=== PATIENT | male | born 1960 | race Caucasian/White ===

== ENCOUNTER → 2018-08-08 15:35 | Outpatient (POV) | payer SELFPAY | PROVIDERS: Visit Provider Dermatology | DX: Z00.00 Encounter for general adult medical examination without abnormal findings (principal) ==

== ENCOUNTER → 2018-09-26 15:44 | Outpatient (POV) | payer SELFPAY | PROVIDERS: Visit Provider Dermatology | DX: Z00.00 Encounter for general adult medical examination without abnormal findings (principal) ==

== ENCOUNTER → 2019-06-26 11:13 | Outpatient (CLI) | payer OTHER, SELFPAY ==
--- NOTE | 2019-06-26 11:17 | XR_ITS ---
PROCEDURE: XR CALCANEUS RT MIN 2V CLINICAL INDICATION: RT HEEL PAIN COMPARISON: No exams were available for comparison FINDINGS: No fracture or dislocation. No lytic or blastic change. There is normal mineralization. The joint spaces are well-preserved. No significant degenerative/arthritic changes. No erosive changes evident. Other findings:There is a enthesophyte at the Achilles insertion with some fragmentation superiorly IMPRESSION: Small Achilles enthesophyte otherwise negative Dictated by: Trell Zeng MD 06/26/2019 17:41 Electronically signed by Trell Zeng MD in [place] 06/26/2019 17:41
== END ==
PROVIDERS: PCP Family Medicine; Visit Provider Family Medicine
DX: M79.671 Pain in right foot (principal)
CPT/HCPCS: 73650

== ENCOUNTER 2023-12-27 14:01 | Outpatient (CLI) | payer MEDICARE, SELFPAY ==
--- NOTE | 2023-12-27 | CA_ITS ---
FINAL REPORT TECHNIQUE: Ultrasound images of the deep venous system were obtained from the left groin to the calf veins. CLINICAL HISTORY: Left lateral knee pain FINDINGS: The deep venous system is normally compressible. Normal flow is identified. IMPRESSION: No evidence of left lower extremity DVT. Reviewed, Interpreted and Dictated by Jose Luis Marrero MD Transcribed by Geneva Sherman Authenticated and [facility]
== END 2023-12-27 23:59 | disposition home or self-care (01) ==
LOC: RT 14:08
PROVIDERS: PCP Family Medicine; Visit Provider Family Medicine
DX: M79.605 Pain in left leg (principal)
CPT/HCPCS: 93971

== ENCOUNTER 2024-07-09 09:03 | Outpatient (CLI) | payer MEDICARE, SELFPAY ==
--- NOTE | 2024-07-09 09:06 | MR_ITS ---
FINAL REPORT TECHNIQUE: Multiplanar and multisequence imaging of the lumbar spine was obtained without contrast. CLINICAL HISTORY: SCIATIC LEG PAIN. left sided low back pain with left leg pain. no injury or trauma. COMPARISON: None FINDINGS: There is grade 1 anterior spondylolisthesis of L5 on S1. Alignment is otherwise normal.. Vertebral body height is preserved. The spinal cord ends at the level of L1. There is normal signal intensity within the substance of the distal spinal cord. No acute bone marrow edema or pathologic marrow replacement. Bilateral renal cysts are noted. No acute paraspinal abnormality is identified. L1-2: There is no focal disc herniation, central canal stenosis or neuroforaminal narrowing. L2-3: Central disc protrusion superimposed on annular disc bulge with degenerative endplate changes and facet osteoarthropathy. Moderate to severe central canal stenosis with moderate right and severe left foraminal stenosis. L3-4: Annular disc bulge with degenerative endplate changes and facet osteoarthropathy. Mild central canal stenosis and bilateral foraminal stenosis. L4-5: Annular disc bulge with degenerative endplate changes and facet osteoarthropathy. No central canal stenosis. Moderate right and mild left foraminal stenosis L5-S1: Annular disc bulge with degenerative endplate changes and facet osteoarthropathy. Mild central canal stenosis. Severe bilateral foraminal stenosis. IMPRESSION: Grade 1 anterior spondylolisthesis of L5 on S1. Central protrusion at L2-3 superimposed on annular bulge with severe central canal stenosis. Degenerative disease at other levels as above. Reviewed, Interpreted and Dictated by Lacie Puga MD Transcribed by Delmi Pascal Authenticated and [facility]
== END 2024-07-09 23:59 | disposition home or self-care (01) ==
LOC: RAD 09:04
PROVIDERS: PCP Family Medicine; Visit Provider Family Medicine
DX: M54.42 Lumbago with sciatica, left side (principal)
CPT/HCPCS: 72148

== ENCOUNTER 2024-09-03 08:00 | Outpatient (RCR) | payer MEDICARE, SELFPAY ==
--- NOTE | 2024-08-23 08:59 | HMH.PTOPEV ---
PT Outpatient Evaluation Rehab PT Outpatient Evaluation Start: 08/23/24 07:51 Freq: Status: Active Protocol: Document 08/23/24 07:51 DIMITRIOS (Rec: 08/23/24 08:59 DIMITRIOS [id number]) E-signed By Jesse Virk, PT Outpatient Therapy Subjective History Subjective History Pt is a 64 yom who is referred to [facility] outpatient PT with complaints of LBP that refers down his LLE but not past his knee. Pt reports that this pain began insidiously approximately 5 months ago and has neither improved nor worsened. Pt reports that his pain is worst when he first stands up in the mornings. Reports that it typically improves with activity but will occasionally worsen with walking or standing. Pt reports that it always improves when he sits down. Denies N&T or bowel and bladder changes. MRI: Grade 1 anterior spondylolisthesis of L5 on S1. Central protrusion at L2-3 superimposed on annular bulge with severe central canal stenosis. Occupation: Retired PMH: HTN New diagnosis of No cancer in past 12 months? Chief Complaint Pain Symptom Type Ache Symptoms Relieved By OTC Meds,Activity Symptoms Aggravated Standing,Bending/Stooping,Walking,Lifting By Prior Functional None Limitations Current Functional Housework,Standing,Squatting,Walking Limitations Symptom Description Constant but Variable,Intermittent,Activity Dependent Level of pain today 8 (0-10) Pain scale - at its 1 best (0-10) Pain scale - at its 10 worst (0-10) Lumbopelvic Eval Posture Thoracic Spine Neutral Posture Standing Position Lumbar Spine Posture Flexed Standing Position Gait Observation General Gait Pattern Antalgic Gait,Decrease Weight Bear (L) Observation Palapation tenderness left lumbar spinal Yes: TTP 3/4 to L2-L4 and SI joint tenderness paraspinal Yes: TTP 2/4 L lumbar paraspinals tenderness Accessory Movement L2 left L3 left S1 left Range of Motion Lumbar Spine Active 75% Flexion Range of Motion (degrees) Lumbar Spine Active 25% Extension Range of Motion (degrees) Left Lumbar Spine 25% Lateral Flexion Active Range of Motion (degrees) Right Lumbar Spine 25% Lateral Flexion Active Range of Motion (degrees) Lumbar Spine ROM Soft Tissue Tightness,Pain Limitations Manual Muscle Test Bilateral Knee Extension 4+ Good+ Strength Grade Knee Flexion 4+ Good+ Strength Grade Hip Flexion Strength 4+ Good+ Grade Hip Abduction 4- Good- Strength Grade Hip Adduction 4- Good- Strength Grade Hip Extension 4- Good- Strength Grade Extensor Hallucis 5 Normal Longus Strength Grade Ankle Dorsiflexion 5 Normal Strength Grade Gastronemius/Soleus 5 Normal Strength Grade DTR Rt Patellar 2+ Lt Patellar 2+ Rt Gastroc/Soleus 1+ Lt Gastroc/Soleus 1+ Altered Sensation Bilateral Comment Intact and symmetrical to LT globally Special Tests Lumbar Spine Screen Positive Sciatic Nerve Negative Left,Negative Right Tension Test Hip Melissa's Test Positive Left Sacroiliac Joint Negative Left Compression Test Sacroiliac Joint Negative Left Distraction Test Lumbar Long [place] Negative Distraction Test/ Manual Traction Oswestry Index Section 1 Pain Intensity The pain is moderate and does not vary much Section 2 Personal Care ( my way of washing or dressing even though it causes Washing,Dresing) some pain Section 3 Lifting I can lift heavy weights, but it gives me extra pain Section 4 Walking I have some pain when walking but it does not increase with distance Section 5 Sitting I can sit in any chair for as long as I like Section 6 Standing I cannot stand more than 1/2 hour without increasing pain Section 7 Sleeping I get no pain in bed Section 8 Social Life My social life is normal and gives me no extra pain Section 9 Traveling I get no pain when traveling Section 10 Changing Degreee of My pain is gradually getting worse Pain Score and Risk Level Oswestry Sc 13 Oswestry Risk Level Mild Disability Miscellaneous Dx PT Eval Objective Objective Slump Test: - Double Leg Lowering: + Abdominal Strength: 3/5 Outpatient Therapy Assessment Impairments Problems/ Palpation Tenderness,Impaired Range of Motion,Impaired Impairmments Strength,Impaired Gait Pattern,Impaired Walking, Impaired Standing,Impaired Household Care,Impaired Squatting,Impaired Bending,Impaired Recreational Activities,Impaired Balance,Subjective C/O Pain Prognosis Rehab Potential Good Clinical Impression Consistent with Yes Diagnosis Consistent with Lumbar Radiculopathy (M54.16) Short Term Goals Number of Weeks 3 Decreased Palpation Yes: 2/4 to TTP assessment above Tenderness Increase Range of Yes: 50-75% WNL Lumbar Extension and Lateral Flexion Motion Increase Strength Yes: 4/5 to L hip and abdominals Increase Ability to Yes: 30 minutes without increasing symptoms Stand Improve Oswestry Yes: <8 Score Decrease Subjective Yes: 5/10 with above assessment C/O Pain Patient to be Ind w/ Yes HEP Usp Goals Number of Weeks 6 Decreased Palpation Yes: 0-1/4 to TTP assessment above Tenderness Increase Range of Yes: 75-100% WNL Lumbar Extension and Lateral Flexion Motion Increase Strength Yes: 5/5 to L hip and abdominals Improve Gait Pattern Yes: Normalized Gait mechanics without Assistive Device Increase Ability to Yes: 1 hour without increasing symptoms Stand Improve Ability to Yes Squat Improve Ability to Yes Bend Improve Oswestry Yes: <3 Score Decrease Subjective Yes: 2-3/10 with above assessment C/O Pain Patient to be Ind w/ Yes Advanced HEP Outpatient Therapy Plan of Care Treatment Plan May Include Therapeutic Exercise Yes Including Home Exercise Program Manual Therapy Yes Techniques Neuromuscular Re- Yes education Therapeutic Yes Activities to Return to Previous Functional/Work Level Gait Training Yes ADL/Self Care Yes Education Mechanical Traction Yes Dry Needling Yes Thermal Modalities Yes Electrical Yes Stimulation Ultrasound/ Yes Phonophoresis Iontophoresis Yes Manual Lymphatic Yes Drainage Eval/Re-Eval Yes Frequency Times per week 2 Duration Number of Weeks 6 Addendums This patient is a No candidate for social or vocational rehab ? Patient/Guardian Yes verbally acknowledges understanding of treatment program and consents to further treatment? Patient/Guardian Yes verbally acknowledges understanding of diagnosis, prognosis and goals for treatment? Eval Complexity PT Charges 45980 - Low Complexity Shoulder/Elbow Eval Shoulder Objective Measurements Elbow Objective Measurements PHYSICIAN CERTIFICATION: I certify the specified therapy services for Emory David are required, authorized, and reviewed every 30 days.
== END 2024-09-03 23:59 | disposition home or self-care (01) ==
LOC: PT 08:00
PROVIDERS: PCP Family Medicine; Visit Provider Family Medicine
DX: M51.26 Other intervertebral disc displacement, lumbar region (principal)
CPT/HCPCS: 97110; 97140; 97161; 97530

== ENCOUNTER 2024-10-04 08:00 | Outpatient (RCR) | payer MEDICARE, SELFPAY ==
--- NOTE | 2024-09-24 08:56 | HMH.RHREAS ---
Rehab Reassessment Rehab OP Re-assessment Start: 09/05/24 08:19 Freq: Status: Active Protocol: Document 09/24/24 08:11 DIMITRIOS (Rec: 09/24/24 08:56 DIMITRIOS [id number]) E-signed By Jesse Virk, PT Oswestry Index Section 1 Pain Intensity The pain comes and goes and is very mild Section 2 Personal Care ( my way of washing or dressing even though it causes Washing,Dresing) some pain Section 3 Lifting lifting heavy weights off the floor, but I can manage if they are Section 4 Walking I have some pain when walking but it does not increase with distance Section 5 Sitting I can sit in any chair for as long as I like Section 6 Standing I cannot stand more than 1 hour without increasing pain Section 7 Sleeping I get pain in bed, but it does not prevent me from sleeping well Section 8 Social Life My social life is normal but increases the degree of pain Section 9 Traveling I get some pain when traveling, but none of my usual forms of travel m Section 10 Changing Degreee of My pain seems to be getting better, but improvement is Pain slow Score and Risk Level Oswestry Sc 12 Oswestry Risk Level Mild Disability Rehab Re-assessment Subjective Subjective Pt reports that he is 65-75% improved. Pt reports that he feels really good after doing his exercises every morning, which has helped a lot. Pt reports that he continues to stiffen up as the day. Pt reports that his pain is a 2/10 at the worst throughout today's reassessment. Pt reports that standing for approximately 45 minutes seem to cause his symptoms to worsen. Reports that his pain does not get to the levels that it did prior to PT but still pretty bad. Pt reports that he still cannot lift heavier items and is not sure that he will ever return to that. Pt reports that he would like to come for 2 more weeks and then be finished with PT. Pt reports that he is able to squat with no pain. Objective Objective Notes STEVAN: 12 (13 on IE) TTP: 1/4 to L posterior buttock ROM: - Flexion 75% - Lateral Flexion 75% B - Extension 50% Strength: - 5/5 to B hip flexion, abd, add, knee ext and flexion Gait: - No apparent gait abnormalities. -Able to bend without increasing symptoms Assessment Progress Assessment Progressing as Expected Assessment Notes Pt has undergone one month of skilled PT and is progressing well. Pt's PT sessions have consisted of exercises, manual therapy and modalities focused on improving lumbar mobility and managing symptoms. Pt demonstrates improved lumbar ROM, LE strength and reported pain levels. Pt has met several short term and skilled nursing therapy goals at this time. Pt would continue to benefit from skilled PT to continue to address his remaining therapy goals and remaining impairments. Patient goals met ST,2,3,4,6,7 LT,3,4,6,7,9 Plan Plan Continue as per initial POC. Prepare advanced HEP. Frequency of Therapy 2/week Duration of therapy 4 weeks Time and Billing Re-Eval Time 10 Re-Eval Billing 0 Units Charge for PT No reassessment? PHYSICIAN CERTIFICATION: I certify the specified therapy services for Emory David are required, authorized, and reviewed every 30 days.
== END 2024-10-04 23:59 | disposition home or self-care (01) ==
LOC: PT 08:00
PROVIDERS: PCP Family Medicine; Visit Provider Family Medicine
DX: M51.26 Other intervertebral disc displacement, lumbar region (principal)
CPT/HCPCS: 97014; 97110; G0283

== ENCOUNTER 2024-10-17 08:00 | Outpatient (RCR) | payer MEDICARE, SELFPAY | END 2024-10-17 23:59 | disposition home or self-care (01) | LOC: PT 08:00 | PROVIDERS: PCP Family Medicine; Visit Provider Family Medicine | DX: M51.26 Other intervertebral disc displacement, lumbar region (principal) | CPT/HCPCS: 97014; 97110; G0283 ==